=== PATIENT | male | born 1960 | race African-American/Black ===

== ENCOUNTER 2020-12-08 18:27 | Inpatient (IN) | payer SELFPAY ==
[~2020-12-08] VITALS: Ht 182.9 cm; Wt 130.7 kg
[2020-12-08] MEDS ORDERED: SODIUM CHLORIDE 0.9% 1000ML BAG (SEPSIS BOLUS) IV ONE (18:45)
[2020-12-08] MEDS ORDERED: ADENOSINE 3 MG/ML 2ML VIAL IV ONE ×2 (18:45)
[2020-12-08 19:18] LABS: HEMATOCRIT. 45.9 % (42.0-52.0); HEMOGLOBIN. 15.7 g/dL (14.0-18.0); MEAN CORPUSCULAR HEMOGLOBIN 29.5 pg (28.0-32.0); MEAN CORPUSCULAR VOLUME 86.2 fL (80.0-94.0); MEAN PLATELET VOLUME 9.9 fl (7.4-10.4); PLATELET 76 x1000/uL (130-400); RED BLOOD CELL COUNT 5.33 mill/uL (4.7-6.1); RED CELL DISTRIBUTION WIDTH 14.5 % (11.6-14.6)
[2020-12-08 19:23] LABS: INR 1.1; PROTHROMBIN TIME 11.3 sec (9.6-11.0)
[2020-12-08 19:28] LABS: CHLORIDE 96 mEq/L (98-107)
[2020-12-08] MEDS ORDERED: ONDANSETRON HCL 4MG/2ML INJ IV ONE (19:30)
[2020-12-08] MEDS ORDERED: ETOMIDATE 2MG/ML 10ML VIAL IV ONE (19:30)
[2020-12-08] MEDS ORDERED: DILTIAZEM HCL 5MG/ML 5ML VIAL IV ONE ×2 (19:45→20:15)
[2020-12-08 19:49] LABS: T4 FREE 1.15 ng/dL (0.76-1.46)
[2020-12-08 20:29] LABS: PLATELET ESTIMATE DECREASED
[2020-12-08] MEDS ORDERED: SODIUM BICARBONATE 8.4% 1 MEQ/ML 50ML SYR IV NR (22:15)
[2020-12-08] MEDS ORDERED: SODIUM BICARBONATE 150 MEQ in DEXTROSE 5% WATER 1,000 ML IV SCH (23:00)
[2020-12-09] VITALS (43 sets, daily range): BP systolic 96–159; BP diastolic 49–91
[2020-12-09] MEDS ORDERED: SODIUM BICARBONATE 8.4% MEQ/ML 50ML VIAL IV ONE (00:07)
[2020-12-09] MEDS ORDERED: HYDROCODONE/ACETAMINOPHEN 5/325MG TABLET PO PRN (03:15)
[2020-12-09 05:52] LABS: CHLORIDE 100 mEq/L (98-107)
[2020-12-09 06:04] LABS: PHOSPHORUS 5.8 mg/dL (2.5-4.9)
[2020-12-09 06:47] LABS: CREATINE KINASE > 14000 IU/L (39-308)
[2020-12-09] MEDS: ASPIRIN 81MG TABLET PO SCH (08:34)
[2020-12-09] MEDS: METOPROLOL TARTRATE 50MG TABLET PO SCH ×2 (08:34→20:14)
[2020-12-09] MEDS: SEVELAMER CARBONATE 800 MG TABLET PO SCH (08:34)
[2020-12-09] MEDS ORDERED: SODIUM CHLORIDE 0.9% 1,000 ML IV SCH (09:15)
[2020-12-09 09:38] LABS: BASOPHILS % 0.2 % (0.0-2.0); EOSINOPHILS % 3.5 % (0.0-5.0); LYMPHOCYTES % 8.4 % (20.0-50.0); MEAN CORPUSCULAR HEMOGLOBIN 29.7 pg (28.0-32.0); MEAN CORPUSCULAR VOLUME 87.1 fL (80.0-94.0); MEAN PLATELET VOLUME 10.3 fl (7.4-10.4); MONOCYTES % 7.1 % (2.0-8.0); NEUTROPHILS % 80.8 % (40.0-76.0); PLATELET 78 x1000/uL (130-400); RED CELL DISTRIBUTION WIDTH 14.4 % (11.6-14.6)
[2020-12-09 10:59] LABS: CLARITY URINE TURBID (CLEAR); COLOR URINE YELLOW (YELLOW); KETONES URINE NEGATIVE (NEGATIVE); LEUKOCYTE ESTERASE URINE 3+ (NEGATIVE); NITRITE URINE NEGATIVE (NEGATIVE); OCCULT BLOOD URINE 3+ (NEGATIVE); PH URINE 5.5 (4.5-8.0); PROTEIN URINE 2+ (NEGATIVE); SPECIFIC GRAVITY URINE 1.005 (1.005-1.030); UROBILINOGEN URINE 0.2 E.U./dL (0.2-1.0)
[2020-12-09] MEDS: CEFTRIAXONE 1,000 MG in DEXTROSE 5% WATER 50 ML IV SCH (11:07)
[2020-12-09 11:08] LABS: BG DEOXYHEMOGLOBIN 3.3 % (0.0-5.0); BG FRACTION INSPIRED OXYGEN 30; BG HCO3 ACT 20.3 mmol/L (22.0-26.0); BG METHEMOGLOBIN 0.7 % (0.0-1.5); BG OXYGEN SATURATION 96.7 % (92.0-98.5); BG PCO2 31.6 mmHg (35.0-45.0); BG PH 7.426 (7.350-7.450); BG PO2 87.5 mmHg (75.0-100.0); BG SAMPLE SITE RIGHT RADIAL; BG TOTAL HEMOGLOBIN 14.5 g/dL (12.0-18.0); BG VENT MODE NASAL CANNULA
[2020-12-09] MEDS: SODIUM BICARBONATE 150 MEQ in DEXTROSE 5% WATER 1000 ML IV SCH ×2 (11:33→20:15)
[2020-12-09] MEDS ORDERED: INFLUENZA VACCINE 05/PF 0.5 ML VIAL IM ONE (12:00)
[2020-12-09 13:57] LABS: HEPATITIS B SURFACE AB 16.2 mIU/mL
[2020-12-09 14:04] LABS: HEPATITIS B SURFACE ANTIGEN NEGATIVE
[2020-12-09 14:34] LABS: HEPATITIS A AB IGM NEGATIVE (NEGATIVE)
[2020-12-09] MEDS: IPRATROPIUM/ALBUTEROL 0.5-3(2.5)MG/3ML NEB HHN SCH (15:27)
[2020-12-09] MEDS: ACETAMINOPHEN 325MG TABLET PO PRN (20:14)
[2020-12-09] MEDS: GUAIFENESIN 600MG ER TABLET PO SCH (20:14)
[2020-12-10] VITALS (21 sets, daily range): BP systolic 101–129; BP diastolic 51–72
[2020-12-10] MEDS: IPRATROPIUM/ALBUTEROL 0.5-3(2.5)MG/3ML NEB HHN SCH ×3 (00:41→14:36)
[2020-12-10] MEDS: ACETAMINOPHEN 325MG TABLET PO PRN (04:37)
[2020-12-10 05:48] LABS: HEMATOCRIT. 42.1 % (42.0-52.0); MEAN CORPUSCULAR HEMOGLOBIN 29.3 pg (28.0-32.0); MEAN CORPUSCULAR VOLUME 88.3 fL (80.0-94.0); MEAN PLATELET VOLUME 9.4 fl (7.4-10.4); PLATELET 59 x1000/uL (130-400); RED BLOOD CELL COUNT 4.77 mill/uL (4.7-6.1); RED CELL DISTRIBUTION WIDTH 14.9 % (11.6-14.6)
[2020-12-10] MEDS: SODIUM BICARBONATE 150 MEQ in DEXTROSE 5% WATER 1000 ML IV SCH (06:03)
[2020-12-10] MEDS: ASPIRIN 81MG TABLET PO SCH (08:10)
[2020-12-10] MEDS: GUAIFENESIN 600MG ER TABLET PO SCH ×2 (08:10→21:53)
[2020-12-10] MEDS: SEVELAMER CARBONATE 800 MG TABLET PO SCH (08:10)
[2020-12-10] MEDS: METOPROLOL TARTRATE 50MG TABLET PO SCH ×2 (08:11→21:54)
[2020-12-10 08:34] LABS: CREATINE KINASE 8102 IU/L (39-308)
[2020-12-10 11:02] LABS: PLATELET ESTIMATE DECREASED
[2020-12-10] MEDS: SODIUM CHLORIDE 0.9% 1,000 ML IV SCH ×2 (11:37→19:15)
[2020-12-10] MEDS: CEFTRIAXONE 1,000 MG in DEXTROSE 5% WATER 50 ML IV SCH (11:37)
[2020-12-10 13:11] LABS: ANTI-NUCLEAR ANTIBODIES DIRECT Negative (Negative)
[2020-12-11] VITALS (7 sets, daily range): BP systolic 96–133; BP diastolic 63–82
[2020-12-11] MEDS: IPRATROPIUM/ALBUTEROL 0.5-3(2.5)MG/3ML NEB HHN SCH ×2 (00:42→09:18)
[2020-12-11] MEDS: SODIUM CHLORIDE 0.9% 1,000 ML IV SCH ×2 (05:46→15:15)
[2020-12-11 06:24] LABS: HEMOGLOBIN. 13.3 g/dL (14.0-18.0); MEAN CORPUSCULAR HEMOGLOBIN 30.1 pg (28.0-32.0); MEAN CORPUSCULAR VOLUME 88.2 fL (80.0-94.0); MEAN PLATELET VOLUME 9.6 fl (7.4-10.4); PLATELET 68 x1000/uL (130-400); RED BLOOD CELL COUNT 4.43 mill/uL (4.7-6.1); RED CELL DISTRIBUTION WIDTH 14.8 % (11.6-14.6)
[2020-12-11 07:44] LABS: CREATINE KINASE 5357 IU/L (39-308)
[2020-12-11] MEDS: METOPROLOL TARTRATE 50MG TABLET PO SCH (10:39)
[2020-12-11] MEDS: ASPIRIN 81MG TABLET PO SCH (10:39)
[2020-12-11] MEDS: GUAIFENESIN 600MG ER TABLET PO SCH ×2 (10:39→21:32)
[2020-12-11] MEDS: TAMSULOSIN HCL 0.4MG SR CAPSULE PO SCH (10:40)
[2020-12-11] MEDS ORDERED: METOPROLOL TARTRATE 25MG TABLET PO NR (11:30)
[2020-12-11] MEDS: CEFTRIAXONE 1,000 MG in DEXTROSE 5% WATER 50 ML IV SCH (13:06)
[2020-12-11] MEDS: ACETAMINOPHEN 325MG TABLET PO PRN (16:19)
[2020-12-11 16:34] LABS: PLATELET ESTIMATE DECREASED
[2020-12-11] MEDS: METOPROLOL TARTRATE 25MG TABLET PO SCH (21:32)
[2020-12-12] MEDS: IPRATROPIUM/ALBUTEROL 0.5-3(2.5)MG/3ML NEB HHN SCH ×2 (00:33→09:33)
[2020-12-12 04:00] VITALS: BP 149/93
[2020-12-12] MEDS: SODIUM CHLORIDE 0.9% 1,000 ML IV SCH ×3 (04:39→21:31)
[2020-12-12] MEDS: ACETAMINOPHEN 325MG TABLET PO PRN (05:13)
[2020-12-12 06:29] LABS: BASOPHILS % 0.1 % (0.0-2.0); EOSINOPHILS % 0.5 % (0.0-5.0); HEMATOCRIT. 42.4 % (42.0-52.0); HEMOGLOBIN. 14.3 g/dL (14.0-18.0); LYMPHOCYTES % 12.4 % (20.0-50.0); MEAN CORPUSCULAR HEMOGLOBIN 29.7 pg (28.0-32.0); MEAN CORPUSCULAR VOLUME 87.7 fL (80.0-94.0); MEAN PLATELET VOLUME 9.7 fl (7.4-10.4); MONOCYTES % 4.7 % (2.0-8.0); NEUTROPHILS % 82.3 % (40.0-76.0); PLATELET 109 x1000/uL (130-400); RED BLOOD CELL COUNT 4.84 mill/uL (4.7-6.1); RED CELL DISTRIBUTION WIDTH 14.6 % (11.6-14.6)
[2020-12-12 08:20] VITALS: BP 131/85
[2020-12-12] MEDS ORDERED: PANTOPRAZOLE SODIUM 40 MG/VIAL IV NR (09:30)
[2020-12-12 09:36] LABS: CREATINE KINASE 4062 IU/L (39-308)
[2020-12-12] MEDS: GUAIFENESIN 600MG ER TABLET PO SCH ×2 (09:38→21:30)
[2020-12-12] MEDS: TAMSULOSIN HCL 0.4MG SR CAPSULE PO SCH (09:38)
[2020-12-12] MEDS: METOPROLOL TARTRATE 25MG TABLET PO SCH ×2 (09:39→21:30)
[2020-12-12] MEDS: ASPIRIN 81MG TABLET PO SCH (09:39)
[2020-12-12 11:59] VITALS: BP 126/78
[2020-12-12] MEDS: CEFTRIAXONE 1,000 MG in DEXTROSE 5% WATER 50 ML IV SCH (12:00)
[2020-12-12 16:01] VITALS: BP 120/83
[2020-12-12 20:00] VITALS: BP 144/81
[2020-12-13] VITALS: BP 142/90
[2020-12-13 04:00] VITALS: BP 154/90
[2020-12-13 06:37] LABS: BASOPHILS % 0.2 % (0.0-2.0); EOSINOPHILS % 0.5 % (0.0-5.0); HEMATOCRIT. 41.3 % (42.0-52.0); MEAN CORPUSCULAR HEMOGLOBIN 29.3 pg (28.0-32.0); MEAN CORPUSCULAR VOLUME 86.7 fL (80.0-94.0); MEAN PLATELET VOLUME 9.3 fl (7.4-10.4); NEUTROPHILS % 82.3 % (40.0-76.0); PLATELET 125 x1000/uL (130-400); RED BLOOD CELL COUNT 4.77 mill/uL (4.7-6.1); RED CELL DISTRIBUTION WIDTH 14.5 % (11.6-14.6)
[2020-12-13 07:01] LABS: CHLORIDE 101 mEq/L (98-107)
[2020-12-13] MEDS: SODIUM CHLORIDE 0.9% 1,000 ML IV SCH (07:03)
[2020-12-13 07:34] LABS: CREATINE KINASE 2782 IU/L (39-308)
[2020-12-13 08:00] VITALS: BP 145/95
[2020-12-13] MEDS: METOPROLOL TARTRATE 25MG TABLET PO SCH ×2 (08:52→20:47)
[2020-12-13] MEDS: TAMSULOSIN HCL 0.4MG SR CAPSULE PO SCH (08:52)
[2020-12-13] MEDS: ASPIRIN 81MG TABLET PO SCH (08:52)
[2020-12-13] MEDS: GUAIFENESIN 600MG ER TABLET PO SCH ×2 (08:52→21:00)
[2020-12-13] MEDS ORDERED: FUROSEMIDE 40MG/4ML VIAL IVP NR (09:15)
[2020-12-13] MEDS ORDERED: POTASSIUM CHLORIDE 20MEQ/PACKET PO NR (09:15)
[2020-12-13] MEDS ORDERED: IPRATROPIUM/ALBUTEROL 0.5-3(2.5)MG/3ML NEB HHN PRN (10:45)
[2020-12-13] MEDS: CEFTRIAXONE 1,000 MG in DEXTROSE 5% WATER 50 ML IV SCH (11:01)
[2020-12-13 11:42] LABS: BG BASE EXCESS 2.1 mmol/L (-2.0-2.0); BG CARBOXYHEMOGLOBIN 0.5 % (0.5-1.5); BG DEOXYHEMOGLOBIN 8.3 % (0.0-5.0); BG FRACTION INSPIRED OXYGEN 21; BG HCO3 ACT 25.5 mmol/L (22.0-26.0); BG METHEMOGLOBIN 0.3 % (0.0-1.5); BG OXYGEN SATURATION 91.6 % (92.0-98.5); BG OXYHEMOGLOBIN 90.9 % (94.0-97.0); BG PCO2 35.9 mmHg (35.0-45.0); BG PH 7.469 (7.350-7.450); BG PO2 60.9 mmHg (75.0-100.0); BG SAMPLE SITE LEFT RADIAL; BG TOTAL HEMOGLOBIN 15.4 g/dL (12.0-18.0); BG VENT MODE ROOM AIR
[2020-12-13 12:00] VITALS: BP 127/77
[2020-12-13 16:00] VITALS: BP 130/84
[2020-12-13 20:00] VITALS: BP 116/59
[2020-12-13] MEDS: GUAIFENESIN-DM 200MG-20MG/10ML UDC PO SCH (23:26)
[2020-12-13] MEDS: ACETAMINOPHEN 325MG TABLET PO PRN (23:40)
[2020-12-14] VITALS (10 sets, daily range): BP systolic 105–128; BP diastolic 57–77
[2020-12-14] MEDS: GUAIFENESIN-DM 200MG-20MG/10ML UDC PO SCH ×2 (06:15→12:57)
[2020-12-14 07:28] LABS: CHLORIDE 104 mEq/L (98-107)
[2020-12-14 07:32] LABS: BASOPHILS % 0.3 % (0.0-2.0); EOSINOPHILS % 0.3 % (0.0-5.0); HEMATOCRIT. 41.7 % (42.0-52.0); HEMOGLOBIN. 14.2 g/dL (14.0-18.0); LYMPHOCYTES % 14.8 % (20.0-50.0); MEAN CORPUSCULAR HEMOGLOBIN 29.9 pg (28.0-32.0); MEAN CORPUSCULAR VOLUME 87.8 fL (80.0-94.0); MEAN PLATELET VOLUME 10.1 fl (7.4-10.4); MONOCYTES % 4.9 % (2.0-8.0); NEUTROPHILS % 79.7 % (40.0-76.0); PLATELET 144 x1000/uL (130-400); RED BLOOD CELL COUNT 4.75 mill/uL (4.7-6.1); RED CELL DISTRIBUTION WIDTH 14.7 % (11.6-14.6)
[2020-12-14 07:52] LABS: CREATINE KINASE 1201 IU/L (39-308)
[2020-12-14] MEDS ORDERED: GUAIFENESIN-DM 200MG-20MG/10ML UDC PO ONE (09:00)
[2020-12-14] MEDS: ASPIRIN 81MG TABLET PO SCH (09:44)
[2020-12-14] MEDS: TAMSULOSIN HCL 0.4MG SR CAPSULE PO SCH (09:44)
[2020-12-14] MEDS: GUAIFENESIN 600MG ER TABLET PO SCH ×2 (09:44→20:01)
[2020-12-14] MEDS: METOPROLOL TARTRATE 25MG TABLET PO SCH ×2 (09:45→20:01)
[2020-12-14] MEDS: ACETAMINOPHEN 325MG TABLET PO PRN (10:31)
[2020-12-15] VITALS (11 sets, daily range): BP systolic 117–139; BP diastolic 70–85
[2020-12-15] MEDS: GUAIFENESIN-DM 200MG-20MG/10ML UDC PO SCH ×4 (00:16→17:25)
[2020-12-15 06:25] LABS: CHLORIDE 107 mEq/L (98-107)
[2020-12-15 06:31] LABS: BASOPHILS % 0.2 % (0.0-2.0); EOSINOPHILS % 0.4 % (0.0-5.0); HEMATOCRIT. 42.5 % (42.0-52.0); HEMOGLOBIN. 14.3 g/dL (14.0-18.0); LYMPHOCYTES % 11.9 % (20.0-50.0); MEAN CORPUSCULAR HEMOGLOBIN 29.5 pg (28.0-32.0); MEAN CORPUSCULAR VOLUME 87.5 fL (80.0-94.0); MONOCYTES % 4.2 % (2.0-8.0); NEUTROPHILS % 83.3 % (40.0-76.0); PLATELET 146 x1000/uL (130-400); RED BLOOD CELL COUNT 4.86 mill/uL (4.7-6.1); RED CELL DISTRIBUTION WIDTH 14.7 % (11.6-14.6)
[2020-12-15 06:35] LABS: CREATINE KINASE 663 IU/L (39-308)
[2020-12-15] MEDS: ASPIRIN 81MG TABLET PO SCH (08:37)
[2020-12-15] MEDS: GUAIFENESIN 600MG ER TABLET PO SCH ×2 (08:38→20:50)
[2020-12-15] MEDS: TAMSULOSIN HCL 0.4MG SR CAPSULE PO SCH (08:38)
[2020-12-15] MEDS: METOPROLOL TARTRATE 25MG TABLET PO SCH ×2 (08:40→20:50)
[2020-12-15 09:54] LABS: PHOSPHORUS 3.1 mg/dL (2.5-4.9)
[2020-12-15] MEDS ORDERED: POTASSIUM CHLORIDE INJ 40 MEQ in DEXT 5% WATER 250 ML IV NR (11:00)
[2020-12-15] MEDS: METOCLOPRAMIDE HCL 10MG/2ML VIAL IV SCH ×2 (12:06→17:25)
[2020-12-15] MEDS: SODIUM CHLORIDE 0.9% 1,000 ML IV SCH (15:30)
[2020-12-16] VITALS (16 sets, daily range): BP systolic 93–149; BP diastolic 57–91
[2020-12-16] MEDS: METOCLOPRAMIDE HCL 10MG/2ML VIAL IV SCH ×5 (01:37→23:57)
[2020-12-16] MEDS: GUAIFENESIN-DM 200MG-20MG/10ML UDC PO SCH ×5 (01:37→23:57)
[2020-12-16] MEDS: SODIUM CHLORIDE 0.9% 1,000 ML IV SCH (04:32)
[2020-12-16 06:43] LABS: BASOPHILS % 0.3 % (0.0-2.0); EOSINOPHILS % 0.2 % (0.0-5.0); HEMOGLOBIN. 14.2 g/dL (14.0-18.0); LYMPHOCYTES % 13.4 % (20.0-50.0); MEAN CORPUSCULAR HEMOGLOBIN 30.3 pg (28.0-32.0); MEAN CORPUSCULAR VOLUME 87.5 fL (80.0-94.0); MEAN PLATELET VOLUME 9.7 fl (7.4-10.4); MONOCYTES % 4.2 % (2.0-8.0); NEUTROPHILS % 81.9 % (40.0-76.0); PLATELET 192 x1000/uL (130-400); RED BLOOD CELL COUNT 4.69 mill/uL (4.7-6.1); RED CELL DISTRIBUTION WIDTH 14.7 % (11.6-14.6)
[2020-12-16 07:55] LABS: CHLORIDE 109 mEq/L (98-107)
[2020-12-16 08:05] LABS: CREATINE KINASE 356 IU/L (39-308)
[2020-12-16] MEDS ORDERED: POTASSIUM CHLORIDE 20MEQ TABLET SR PO NR ×3 (09:45→22:00)
[2020-12-16] MEDS ORDERED: BISACODYL 10MG SUPP PR PRN (09:45)
[2020-12-16] MEDS: ASPIRIN 81MG TABLET PO SCH (09:50)
[2020-12-16] MEDS: GUAIFENESIN 600MG ER TABLET PO SCH ×2 (09:50→22:07)
[2020-12-16] MEDS: TAMSULOSIN HCL 0.4MG SR CAPSULE PO SCH (09:51)
[2020-12-16] MEDS: METOPROLOL TARTRATE 25MG TABLET PO SCH (09:51)
[2020-12-16] MEDS ORDERED: LACTULOSE 20G/30ML UDC PO NR (10:00)
[2020-12-16] MEDS: DEXT 5%/0.45% NACL 1000ML 1,000 ML IV SCH ×2 (11:12→21:40)
[2020-12-16] MEDS: METRONIDAZOLE 500 MG PREMIX 100 ML IV SCH ×2 (11:12→20:00)
[2020-12-16] MEDS ORDERED: METOPROLOL TARTRATE 5MG/5ML VIAL IV NR (12:15)
[2020-12-16] MEDS ORDERED: SODIUM CHLORIDE 0.9% 250 ML IV ONE ×2 (12:15→21:30)
[2020-12-16] MEDS ORDERED: CEFTRIAXONE 2 G PREMIX 50 ML IV SCH (13:00)
[2020-12-16] MEDS ORDERED: ADENOSINE 3 MG/ML 2ML VIAL IV ONE ×2 (14:15)
[2020-12-16] MEDS ORDERED: AMIODARONE HCL 150 MG in DEXT 5% WATER 100 ML IV ONE (14:30)
[2020-12-16] MEDS: CEFTRIAXONE 2 G in DEXTROSE 5% WATER 50 ML IV SCH (14:35)
[2020-12-16] MEDS: AMIODARONE HCL 900 MG in DEXT 5% WATER 482 ML IV SCH (15:28)
[2020-12-16] MEDS ORDERED: DIGOXIN 500MCG/2ML AMP IV NR (21:30)
[2020-12-16] MEDS: METOPROLOL TARTRATE 25MG TABLET PO NR ×2 (21:38→22:06)
[2020-12-17] VITALS (9 sets, daily range): BP systolic 87–112; BP diastolic 52–88
[2020-12-17] MEDS: METRONIDAZOLE 500 MG PREMIX 100 ML IV SCH ×3 (03:58→19:28)
[2020-12-17] MEDS: METOCLOPRAMIDE HCL 10MG/2ML VIAL IV SCH ×4 (05:24→23:17)
[2020-12-17] MEDS: GUAIFENESIN-DM 200MG-20MG/10ML UDC PO SCH ×4 (05:27→23:17)
[2020-12-17 06:00] LABS: CHLORIDE 105 mEq/L (98-107)
[2020-12-17 06:22] LABS: BASOPHILS % 0.6 % (0.0-2.0); EOSINOPHILS % 0.5 % (0.0-5.0); HEMATOCRIT. 42.1 % (42.0-52.0); HEMOGLOBIN. 13.7 g/dL (14.0-18.0); MEAN CORPUSCULAR HEMOGLOBIN 28.9 pg (28.0-32.0); MEAN CORPUSCULAR VOLUME 88.6 fL (80.0-94.0); MEAN PLATELET VOLUME 10.5 fl (7.4-10.4); MONOCYTES % 3.1 % (2.0-8.0); NEUTROPHILS % 82.8 % (40.0-76.0); PLATELET 164 x1000/uL (130-400); RED BLOOD CELL COUNT 4.75 mill/uL (4.7-6.1); RED CELL DISTRIBUTION WIDTH 15.1 % (11.6-14.6)
[2020-12-17] MEDS: ASPIRIN 81MG TABLET PO SCH (08:00)
[2020-12-17] MEDS: GUAIFENESIN 600MG ER TABLET PO SCH ×2 (08:00→21:46)
[2020-12-17] MEDS: METOPROLOL TARTRATE 100MG TABLET PO SCH ×2 (08:01→21:46)
[2020-12-17] MEDS: TAMSULOSIN HCL 0.4MG SR CAPSULE PO SCH (08:01)
[2020-12-17] MEDS: DIGOXIN 500MCG/2ML AMP IV SCH ×2 (08:48→17:40)
[2020-12-17] MEDS ORDERED: POTASSIUM CHLORIDE 20MEQ TABLET SR PO SCH (09:00)
[2020-12-17] MEDS ORDERED: METOPROLOL TARTRATE 5MG/5ML VIAL IV PRN (10:15)
[2020-12-17] MEDS: DEXT 5%/0.45% NACL 1000ML 1,000 ML IV SCH ×2 (10:26→23:17)
[2020-12-17] MEDS ORDERED: IPRATROPIUM BROMIDE (0.02%) 0.5MG/2.5ML NEB HHN PRN (10:30)
[2020-12-17] MEDS: AMIODARONE HCL 900 MG in DEXT 5% WATER 482 ML IV SCH (10:34)
[2020-12-17] MEDS ORDERED: POTASSIUM CHLORIDE INJ 40 MEQ in DEXT 5% WATER 250 ML IV SCH (11:00)
[2020-12-17] MEDS: CEFTRIAXONE 2 G in DEXTROSE 5% WATER 50 ML IV SCH (14:11)
[2020-12-17] MEDS ORDERED: SODIUM CHLORIDE 0.9% 250 ML IV ONE (16:15)
[2020-12-17 17:20] LABS: CHLORIDE 104 mEq/L (98-107)
[2020-12-17] MEDS ORDERED: POTASSIUM CHLORIDE INJ 40 MEQ in DEXT 5% WATER 250 ML IV NR (20:00)
[2020-12-17] MEDS: AMIODARONE HCL 200 MG TABLET PO SCH (21:45)
[2020-12-18] VITALS (15 sets, daily range): BP systolic 89–123; BP diastolic 51–79
[2020-12-18] MEDS: METRONIDAZOLE 500 MG PREMIX 100 ML IV SCH ×3 (04:00→19:56)
[2020-12-18] MEDS: GUAIFENESIN-DM 200MG-20MG/10ML UDC PO SCH ×3 (06:00→18:09)
[2020-12-18] MEDS: AMIODARONE HCL 200 MG TABLET PO SCH ×3 (06:00→20:32)
[2020-12-18] MEDS: METOCLOPRAMIDE HCL 10MG/2ML VIAL IV SCH (06:12)
[2020-12-18 07:04] LABS: BASOPHILS % 0.2 % (0.0-2.0); EOSINOPHILS % 0.6 % (0.0-5.0); HEMATOCRIT. 44.2 % (42.0-52.0); HEMOGLOBIN. 14.5 g/dL (14.0-18.0); LYMPHOCYTES % 11.4 % (20.0-50.0); MEAN CORPUSCULAR HEMOGLOBIN 29.3 pg (28.0-32.0); MEAN CORPUSCULAR VOLUME 89.3 fL (80.0-94.0); MEAN PLATELET VOLUME 9.8 fl (7.4-10.4); NEUTROPHILS % 83.8 % (40.0-76.0); PLATELET 135 x1000/uL (130-400); RED BLOOD CELL COUNT 4.95 mill/uL (4.7-6.1); RED CELL DISTRIBUTION WIDTH 14.8 % (11.6-14.6)
[2020-12-18 07:14] LABS: CHLORIDE 106 mEq/L (98-107)
[2020-12-18 07:19] LABS: PHOSPHORUS 2.9 mg/dL (2.5-4.9)
[2020-12-18 07:45] LABS: DIGOXIN 0.7 ng/mL (0.9-2.0)
[2020-12-18] MEDS: METOPROLOL TARTRATE 100MG TABLET PO SCH ×2 (09:00→20:33)
[2020-12-18] MEDS: ASPIRIN 81MG TABLET PO SCH (10:38)
[2020-12-18] MEDS: TAMSULOSIN HCL 0.4MG SR CAPSULE PO SCH (10:38)
[2020-12-18] MEDS: DEXT 5%/0.45% NACL 1000ML 1,000 ML IV SCH ×2 (10:39→18:11)
[2020-12-18] MEDS: GUAIFENESIN 600MG ER TABLET PO SCH (13:08)
[2020-12-18] MEDS ORDERED: AMIODARONE HCL 50MG/ML 3ML VIAL IV ONE (13:45)
[2020-12-18] MEDS ORDERED: AMIODARONE HCL 150 MG in DEXT 5% WATER 100 ML IV SCH (15:00)
[2020-12-18] MEDS: CEFTRIAXONE 2 G in DEXTROSE 5% WATER 50 ML IV SCH (15:10)
[2020-12-18] MEDS: DIGOXIN 500MCG/2ML AMP IV SCH (18:09)
[2020-12-19] VITALS (12 sets, daily range): BP systolic 101–132; BP diastolic 55–82
[2020-12-19] MEDS: GUAIFENESIN-DM 200MG-20MG/10ML UDC PO SCH ×4 (01:00→18:26)
[2020-12-19] MEDS: METRONIDAZOLE 500 MG PREMIX 100 ML IV SCH ×3 (04:32→20:07)
[2020-12-19] MEDS: DEXT 5%/0.45% NACL 1000ML 1,000 ML IV SCH ×2 (04:32→13:40)
[2020-12-19] MEDS: AMIODARONE HCL 200 MG TABLET PO SCH ×3 (06:00→21:52)
[2020-12-19] MEDS: METOPROLOL TARTRATE 100MG TABLET PO SCH (08:12)
[2020-12-19] MEDS: ASPIRIN 81MG TABLET PO SCH (08:12)
[2020-12-19] MEDS: TAMSULOSIN HCL 0.4MG SR CAPSULE PO SCH (08:13)
[2020-12-19 11:15] LABS: BASOPHILS % 0.3 % (0.0-2.0); EOSINOPHILS % 0.8 % (0.0-5.0); HEMATOCRIT. 39.2 % (42.0-52.0); HEMOGLOBIN. 13.1 g/dL (14.0-18.0); LYMPHOCYTES % 15.3 % (20.0-50.0); MEAN CORPUSCULAR HEMOGLOBIN 29.4 pg (28.0-32.0); MEAN CORPUSCULAR VOLUME 87.8 fL (80.0-94.0); MEAN PLATELET VOLUME 9.8 fl (7.4-10.4); MONOCYTES % 6.1 % (2.0-8.0); NEUTROPHILS % 77.5 % (40.0-76.0); PLATELET 136 x1000/uL (130-400); RED BLOOD CELL COUNT 4.47 mill/uL (4.7-6.1); RED CELL DISTRIBUTION WIDTH 14.8 % (11.6-14.6)
[2020-12-19 11:22] LABS: CHLORIDE 105 mEq/L (98-107)
[2020-12-19] MEDS: CEFTRIAXONE 2 G in DEXTROSE 5% WATER 50 ML IV SCH (13:38)
[2020-12-19] MEDS: DIGOXIN 500MCG/2ML AMP IV SCH (18:26)
[2020-12-19] MEDS: METOPROLOL TARTRATE 50MG TABLET PO SCH (21:52)
[2020-12-20] VITALS (12 sets, daily range): BP systolic 104–117; BP diastolic 44–75
[2020-12-20] MEDS: DEXT 5%/0.45% NACL 1000ML 1,000 ML IV SCH ×3 (00:49→20:57)
[2020-12-20] MEDS: GUAIFENESIN-DM 200MG-20MG/10ML UDC PO SCH ×4 (00:59→17:45)
[2020-12-20] MEDS: METRONIDAZOLE 500 MG PREMIX 100 ML IV SCH ×3 (04:00→20:57)
[2020-12-20] MEDS: AMIODARONE HCL 200 MG TABLET PO SCH ×3 (06:00→22:24)
[2020-12-20 06:46] LABS: BASOPHILS % 0.6 % (0.0-2.0); EOSINOPHILS % 1.1 % (0.0-5.0); HEMATOCRIT. 39.2 % (42.0-52.0); HEMOGLOBIN. 13.2 g/dL (14.0-18.0); MEAN CORPUSCULAR HEMOGLOBIN 29.9 pg (28.0-32.0); MEAN CORPUSCULAR VOLUME 88.8 fL (80.0-94.0); MEAN PLATELET VOLUME 9.7 fl (7.4-10.4); MONOCYTES % 7.6 % (2.0-8.0); NEUTROPHILS % 73.7 % (40.0-76.0); PLATELET 125 x1000/uL (130-400); RED BLOOD CELL COUNT 4.41 mill/uL (4.7-6.1); RED CELL DISTRIBUTION WIDTH 14.9 % (11.6-14.6)
[2020-12-20 06:52] LABS: CHLORIDE 104 mEq/L (98-107)
[2020-12-20] MEDS: METOPROLOL TARTRATE 50MG TABLET PO SCH ×2 (10:05→20:58)
[2020-12-20] MEDS: ASPIRIN 81MG TABLET PO SCH (10:05)
[2020-12-20] MEDS: TAMSULOSIN HCL 0.4MG SR CAPSULE PO SCH (10:05)
[2020-12-20] MEDS ORDERED: DIATR MEGLU/DIATRIZOATE SOLN 30ML PO SCH (10:30)
[2020-12-20] MEDS ORDERED: IOHEXOL-300 100 ML BOTTLE ONE (14:37)
[2020-12-20] MEDS: CEFTRIAXONE 2 G in DEXTROSE 5% WATER 50 ML IV SCH (15:24)
[2020-12-20] MEDS: DIGOXIN 500MCG/2ML AMP IV SCH (17:46)
[2020-12-21] VITALS (15 sets, daily range): BP systolic 101–123; BP diastolic 56–73
[2020-12-21] MEDS: GUAIFENESIN-DM 200MG-20MG/10ML UDC PO SCH ×4 (01:01→17:32)
[2020-12-21] MEDS: METRONIDAZOLE 500 MG PREMIX 100 ML IV SCH (05:11)
[2020-12-21] MEDS: AMIODARONE HCL 200 MG TABLET PO SCH ×3 (05:59→22:11)
[2020-12-21] MEDS: DEXT 5%/0.45% NACL 1000ML 1,000 ML IV SCH ×2 (06:38→18:00)
[2020-12-21 07:54] LABS: HEMOGLOBIN. 12.7 g/dL (14.0-18.0); MEAN CORPUSCULAR HEMOGLOBIN 29.4 pg (28.0-32.0); MEAN CORPUSCULAR VOLUME 87.6 fL (80.0-94.0); MEAN PLATELET VOLUME 8.9 fl (7.4-10.4); PLATELET 129 x1000/uL (130-400); RED BLOOD CELL COUNT 4.33 mill/uL (4.7-6.1); RED CELL DISTRIBUTION WIDTH 14.6 % (11.6-14.6)
[2020-12-21 08:29] LABS: CHLORIDE 105 mEq/L (98-107)
[2020-12-21] MEDS: METOPROLOL TARTRATE 50MG TABLET PO SCH ×2 (09:44→22:04)
[2020-12-21] MEDS: ASPIRIN 81MG TABLET PO SCH (09:45)
[2020-12-21] MEDS: TAMSULOSIN HCL 0.4MG SR CAPSULE PO SCH (09:45)
[2020-12-21] MEDS ORDERED: POTASSIUM CHLORIDE INJ 40 MEQ in DEXT 5% WATER 250 ML IV NR (11:00)
[2020-12-21 12:58] LABS: PLATELET ESTIMATE NORMAL
[2020-12-21] MEDS: CEFTRIAXONE 2 G in DEXTROSE 5% WATER 50 ML IV SCH (15:43)
[2020-12-21] MEDS: DIGOXIN 500MCG/2ML AMP IV SCH (17:31)
[2020-12-22] VITALS (11 sets, daily range): BP systolic 110–133; BP diastolic 61–83
[2020-12-22] MEDS: DEXT 5%/0.45% NACL 1000ML 1,000 ML IV SCH (03:05)
[2020-12-22 05:53] LABS: CHLORIDE 101 mEq/L (98-107)
[2020-12-22] MEDS: AMIODARONE HCL 200 MG TABLET PO SCH ×4 (06:19→22:31)
[2020-12-22] MEDS: GUAIFENESIN-DM 200MG-20MG/10ML UDC PO SCH ×4 (06:23→18:21)
[2020-12-22 06:27] LABS: HEMATOCRIT. 40.8 % (42.0-52.0); HEMOGLOBIN. 13.6 g/dL (14.0-18.0); MEAN CORPUSCULAR HEMOGLOBIN 29.5 pg (28.0-32.0); MEAN CORPUSCULAR VOLUME 88.3 fL (80.0-94.0); MEAN PLATELET VOLUME 9.1 fl (7.4-10.4); PLATELET 118 x1000/uL (130-400); RED BLOOD CELL COUNT 4.62 mill/uL (4.7-6.1); RED CELL DISTRIBUTION WIDTH 14.6 % (11.6-14.6)
[2020-12-22] MEDS: METOPROLOL TARTRATE 50MG TABLET PO SCH ×3 (09:19→22:40)
[2020-12-22] MEDS: ASPIRIN 81MG TABLET PO SCH (09:19)
[2020-12-22] MEDS: TAMSULOSIN HCL 0.4MG SR CAPSULE PO SCH (09:21)
[2020-12-22 11:10] LABS: HEMATOCRIT 40.6 % (42.0-52.0); HEMOGLOBIN 13.1 g/dL (14.0-18.0); MEAN CORPUSCULAR HEMOGLOBIN 28.3 pg (28.0-32.0); MEAN CORPUSCULAR VOLUME 87.8 fL (80.0-94.0); PLATELET 133 x1000/uL (130-400); RED BLOOD CELL COUNT 4.63 mill/uL (4.7-6.1); RED CELL DISTRIBUTION WIDTH 14.8 % (11.6-14.6)
[2020-12-22 11:21] LABS: CHLORIDE 102 mEq/L (98-107); INR 1.4; PARTIAL THROMBOPLASTIN TIME 35.1 sec (23.4-31.0); PROTHROMBIN TIME 14.2 sec (9.6-11.0)
[2020-12-22 11:29] LABS: PHOSPHORUS 2.7 mg/dL (2.5-4.9)
[2020-12-22] MEDS: SODIUM CHL 0.9% + KCL 20MEQ/L 1,000 ML IV SCH ×2 (11:30→19:30)
[2020-12-22 12:57] LABS: PLATELET ESTIMATE DECREASED
[2020-12-22] MEDS: CEFTRIAXONE 2 G in DEXTROSE 5% WATER 50 ML IV SCH (14:25)
[2020-12-22] MEDS: DIGOXIN 500MCG/2ML AMP IV SCH (18:21)
[2020-12-22] MEDS ORDERED: TOTAL PARENTERAL NUTRITION 1,600 ML IV SCH (21:00)
[2020-12-22] MEDS ORDERED: SODIUM CHL 0.9% + KCL 20MEQ/L 1,000 ML IV SCH (21:00)
[2020-12-22] MEDS: BLOOD SUGAR DIAGNOSTIC STRIP TEST SCH (23:28)
[2020-12-23] VITALS (13 sets, daily range): BP systolic 100–148; BP diastolic 58–87
[2020-12-23] MEDS: GUAIFENESIN-DM 200MG-20MG/10ML UDC PO SCH ×4 (00:56→17:27)
[2020-12-23 06:24] LABS: BASOPHILS % 0.4 % (0.0-2.0); EOSINOPHILS % 1.3 % (0.0-5.0); HEMATOCRIT. 38.9 % (42.0-52.0); HEMOGLOBIN. 12.8 g/dL (14.0-18.0); LYMPHOCYTES % 32.9 % (20.0-50.0); MEAN CORPUSCULAR HEMOGLOBIN 29.2 pg (28.0-32.0); MEAN CORPUSCULAR VOLUME 88.6 fL (80.0-94.0); MEAN PLATELET VOLUME 9.2 fl (7.4-10.4); MONOCYTES % 11.7 % (2.0-8.0); NEUTROPHILS % 53.7 % (40.0-76.0); PLATELET 105 x1000/uL (130-400); RED BLOOD CELL COUNT 4.38 mill/uL (4.7-6.1); RED CELL DISTRIBUTION WIDTH 14.8 % (11.6-14.6)
[2020-12-23] MEDS: AMIODARONE HCL 200 MG TABLET PO SCH ×3 (06:45→22:22)
[2020-12-23 06:56] LABS: CHLORIDE 103 mEq/L (98-107)
[2020-12-23] MEDS: BLOOD SUGAR DIAGNOSTIC STRIP TEST SCH ×3 (08:18→18:00)
[2020-12-23] MEDS ORDERED: DIATR MEGLU/DIATRIZOATE SOLN 30ML PO SCH (09:00)
[2020-12-23] MEDS: METOPROLOL TARTRATE 50MG TABLET PO SCH ×2 (09:00→20:08)
[2020-12-23] MEDS: ASPIRIN 81MG TABLET PO SCH (09:07)
[2020-12-23] MEDS: TAMSULOSIN HCL 0.4MG SR CAPSULE PO SCH (09:07)
[2020-12-23] MEDS ORDERED: REGADENOSON 0.4 MG/5 ML IV SCH (12:00)
[2020-12-23] MEDS ORDERED: REGADENOSON 0.4 MG/5 ML IV ONE (14:29)
[2020-12-23] MEDS: CEFTRIAXONE 2 G in DEXTROSE 5% WATER 50 ML IV SCH (16:55)
[2020-12-23] MEDS: DIGOXIN 500MCG/2ML AMP IV SCH (17:26)
[2020-12-23] MEDS: TOTAL PARENTERAL NUTRITION 1,800 ML IV SCH (21:00)
[2020-12-23] MEDS ORDERED: FAT EMULSIONS 500 ML IV SCH (21:00)
[2020-12-24] VITALS (12 sets, daily range): BP systolic 97–137; BP diastolic 57–87
[2020-12-24] MEDS: GUAIFENESIN-DM 200MG-20MG/10ML UDC PO SCH ×5 (00:06→23:55)
[2020-12-24] MEDS: BLOOD SUGAR DIAGNOSTIC STRIP TEST SCH ×4 (00:57→23:22)
[2020-12-24] MEDS: ONDANSETRON HCL 4MG/2ML INJ IV PRN (01:32)
[2020-12-24] MEDS: AMIODARONE HCL 200 MG TABLET PO SCH (05:13)
[2020-12-24] MEDS: CEFTRIAXONE 1,000 MG in DEXTROSE 5% WATER 50 ML IV SCH (08:28)
[2020-12-24] MEDS: ASPIRIN 81MG TABLET PO SCH (08:28)
[2020-12-24] MEDS: TAMSULOSIN HCL 0.4MG SR CAPSULE PO SCH (08:29)
[2020-12-24] MEDS: METOPROLOL TARTRATE 50MG TABLET PO SCH ×2 (09:00→21:00)
[2020-12-24] MEDS ORDERED: CEFTRIAXONE 2 G PREMIX 50 ML IV SCH (09:00)
[2020-12-24] MEDS: DIGOXIN 500MCG/2ML AMP IV SCH (17:46)
[2020-12-24] MEDS: TOTAL PARENTERAL NUTRITION 1,800 ML IV SCH (21:07)
[2020-12-25] VITALS (13 sets, daily range): BP systolic 99–126; BP diastolic 59–77
[2020-12-25] MEDS: BLOOD SUGAR DIAGNOSTIC STRIP TEST SCH ×4 (00:02→17:33)
[2020-12-25] MEDS: GUAIFENESIN-DM 200MG-20MG/10ML UDC PO SCH ×3 (05:16→17:33)
[2020-12-25] MEDS: ASPIRIN 81MG TABLET PO SCH (09:40)
[2020-12-25] MEDS: METOPROLOL TARTRATE 50MG TABLET PO SCH ×2 (09:40→20:41)
[2020-12-25] MEDS: TAMSULOSIN HCL 0.4MG SR CAPSULE PO SCH (09:40)
[2020-12-25] MEDS: CEFTRIAXONE 1,000 MG in DEXTROSE 5% WATER 50 ML IV SCH (09:41)
[2020-12-25] MEDS: AMIODARONE HCL 200 MG TABLET PO SCH (09:41)
[2020-12-25] MEDS: DIGOXIN 500MCG/2ML AMP IV SCH (17:41)
[2020-12-25 18:20] LABS: HEMATOCRIT. 36.8 % (42.0-52.0); HEMOGLOBIN. 12.3 g/dL (14.0-18.0); MEAN CORPUSCULAR HEMOGLOBIN 29.3 pg (28.0-32.0); MEAN CORPUSCULAR VOLUME 87.3 fL (80.0-94.0); MEAN PLATELET VOLUME 9.1 fl (7.4-10.4); PLATELET 105 x1000/uL (130-400); RED BLOOD CELL COUNT 4.22 mill/uL (4.7-6.1); RED CELL DISTRIBUTION WIDTH 14.9 % (11.6-14.6)
[2020-12-25 18:32] LABS: CHLORIDE 100 mEq/L (98-107)
[2020-12-25 19:03] LABS: PLATELET ESTIMATE DECREASED
[2020-12-25] MEDS: TOTAL PARENTERAL NUTRITION 1,800 ML IV SCH (20:47)
[2020-12-25] MEDS: FAT EMULSIONS 500 ML IV SCH (22:03)
[2020-12-26] VITALS (12 sets, daily range): BP systolic 96–126; BP diastolic 56–72
[2020-12-26] MEDS: GUAIFENESIN-DM 200MG-20MG/10ML UDC PO SCH ×4 (00:04→17:37)
[2020-12-26] MEDS: BLOOD SUGAR DIAGNOSTIC STRIP TEST SCH ×2 (00:04→09:03)
[2020-12-26 06:11] LABS: HEMATOCRIT. 39.7 % (42.0-52.0); HEMOGLOBIN. 13.3 g/dL (14.0-18.0); MEAN CORPUSCULAR HEMOGLOBIN 29.6 pg (28.0-32.0); MEAN PLATELET VOLUME 9.2 fl (7.4-10.4); PLATELET 101 x1000/uL (130-400); RED BLOOD CELL COUNT 4.52 mill/uL (4.7-6.1); RED CELL DISTRIBUTION WIDTH 14.8 % (11.6-14.6)
[2020-12-26 06:14] LABS: CHLORIDE 101 mEq/L (98-107)
[2020-12-26] MEDS: ASPIRIN 81MG TABLET PO SCH (08:46)
[2020-12-26] MEDS: METOPROLOL TARTRATE 50MG TABLET PO SCH ×2 (08:47→20:17)
[2020-12-26] MEDS: TAMSULOSIN HCL 0.4MG SR CAPSULE PO SCH (08:47)
[2020-12-26] MEDS: CEFTRIAXONE 1,000 MG in DEXTROSE 5% WATER 50 ML IV SCH (08:47)
[2020-12-26] MEDS: AMIODARONE HCL 200 MG TABLET PO SCH (08:47)
[2020-12-26] MEDS ORDERED: DIATR MEGLU/DIATRIZOATE SOLN 120ML ONE (09:43)
[2020-12-26 15:17] LABS: PLATELET ESTIMATE DECREASED
[2020-12-26] MEDS: DIGOXIN 500MCG/2ML AMP IV SCH (17:37)
[2020-12-26] MEDS: TOTAL PARENTERAL NUTRITION 1,800 ML IV SCH (20:19)
[2020-12-27] VITALS (12 sets, daily range): BP systolic 82–119; BP diastolic 51–74
[2020-12-27] MEDS: GUAIFENESIN-DM 200MG-20MG/10ML UDC PO SCH ×4 (00:45→18:33)
[2020-12-27] MEDS: CEFTRIAXONE 1,000 MG in DEXTROSE 5% WATER 50 ML IV SCH (08:17)
[2020-12-27] MEDS: ASPIRIN 81MG TABLET PO SCH (08:18)
[2020-12-27] MEDS: AMIODARONE HCL 200 MG TABLET PO SCH (08:19)
[2020-12-27] MEDS: TAMSULOSIN HCL 0.4MG SR CAPSULE PO SCH (08:19)
[2020-12-27] MEDS: METOPROLOL TARTRATE 50MG TABLET PO SCH ×2 (08:20→21:19)
[2020-12-27] MEDS: BLOOD SUGAR DIAGNOSTIC STRIP TEST SCH (09:53)
[2020-12-27] MEDS: FAT EMULSIONS 500 ML IV SCH (09:53)
[2020-12-27] MEDS: DIGOXIN 500MCG/2ML AMP IV SCH (18:33)
[2020-12-27] MEDS: TOTAL PARENTERAL NUTRITION 1,800 ML IV SCH (21:08)
[2020-12-28] VITALS (10 sets, daily range): BP systolic 97–114; BP diastolic 56–76
[2020-12-28] MEDS: GUAIFENESIN-DM 200MG-20MG/10ML UDC PO SCH ×4 (05:31→17:44)
[2020-12-28] MEDS: METOPROLOL TARTRATE 50MG TABLET PO SCH ×2 (09:00→21:00)
[2020-12-28] MEDS: ASPIRIN 81MG TABLET PO SCH (09:06)
[2020-12-28] MEDS: TAMSULOSIN HCL 0.4MG SR CAPSULE PO SCH (09:07)
[2020-12-28] MEDS: CEFTRIAXONE 1,000 MG in DEXTROSE 5% WATER 50 ML IV SCH (09:07)
[2020-12-28] MEDS: BLOOD SUGAR DIAGNOSTIC STRIP TEST SCH (09:30)
[2020-12-28] MEDS: AMIODARONE HCL 200 MG TABLET PO SCH (09:46)
[2020-12-28] MEDS: DIGOXIN 500MCG/2ML AMP IV SCH (17:44)
[2020-12-28] MEDS: TOTAL PARENTERAL NUTRITION 1,800 ML IV SCH (21:39)
[2020-12-29] VITALS (13 sets, daily range): BP systolic 91–117; BP diastolic 53–91
[2020-12-29] MEDS: GUAIFENESIN-DM 200MG-20MG/10ML UDC PO SCH ×5 (00:24→23:24)
[2020-12-29] MEDS: METOPROLOL TARTRATE 50MG TABLET PO SCH ×2 (09:00→20:45)
[2020-12-29] MEDS: BLOOD SUGAR DIAGNOSTIC STRIP TEST SCH (09:00)
[2020-12-29] MEDS: ASPIRIN 81MG TABLET PO SCH (10:10)
[2020-12-29] MEDS: TAMSULOSIN HCL 0.4MG SR CAPSULE PO SCH (10:12)
[2020-12-29] MEDS: AMIODARONE HCL 200 MG TABLET PO SCH (10:13)
[2020-12-29] MEDS ORDERED: BISACODYL 5MG TABLET PO PRN (10:15)
[2020-12-29] MEDS: CEFTRIAXONE 1,000 MG in DEXTROSE 5% WATER 50 ML IV SCH (10:18)
[2020-12-29] MEDS: METOCLOPRAMIDE HCL 10MG/2ML VIAL IV SCH ×3 (12:36→23:24)
[2020-12-29] MEDS: DIGOXIN 500MCG/2ML AMP IV SCH (18:16)
[2020-12-29] MEDS: TOTAL PARENTERAL NUTRITION 1,800 ML IV SCH (20:48)
[2020-12-30] VITALS (16 sets, daily range): BP systolic 90–150; BP diastolic 18–99
[2020-12-30] MEDS: GUAIFENESIN-DM 200MG-20MG/10ML UDC PO SCH ×3 (05:40→17:57)
[2020-12-30] MEDS: METOCLOPRAMIDE HCL 10MG/2ML VIAL IV SCH ×3 (05:40→17:57)
[2020-12-30 07:24] LABS: HEMATOCRIT. 36.7 % (42.0-52.0); HEMOGLOBIN. 12.2 g/dL (14.0-18.0); MEAN CORPUSCULAR HEMOGLOBIN 29.3 pg (28.0-32.0); MEAN CORPUSCULAR VOLUME 88.1 fL (80.0-94.0); MEAN PLATELET VOLUME 9.2 fl (7.4-10.4); PLATELET 133 x1000/uL (130-400); RED BLOOD CELL COUNT 4.17 mill/uL (4.7-6.1); RED CELL DISTRIBUTION WIDTH 14.7 % (11.6-14.6)
[2020-12-30 07:46] LABS: CHLORIDE 101 mEq/L (98-107)
[2020-12-30] MEDS: METOPROLOL TARTRATE 50MG TABLET PO SCH ×2 (09:00→21:09)
[2020-12-30] MEDS: BLOOD SUGAR DIAGNOSTIC STRIP TEST SCH (09:00)
[2020-12-30] MEDS: ASPIRIN 81MG TABLET PO SCH (10:19)
[2020-12-30] MEDS: TAMSULOSIN HCL 0.4MG SR CAPSULE PO SCH (10:27)
[2020-12-30] MEDS: FAT EMULSIONS 500 ML IV SCH (13:06)
[2020-12-30] MEDS: AMIODARONE HCL 200 MG TABLET PO SCH (13:07)
[2020-12-30 16:41] LABS: PLATELET ESTIMATE NORMAL
[2020-12-30] MEDS: TOTAL PARENTERAL NUTRITION 1,800 ML IV SCH (21:04)
[2020-12-31] VITALS (12 sets, daily range): BP systolic 98–131; BP diastolic 47–81
[2020-12-31] MEDS: METOCLOPRAMIDE HCL 10MG/2ML VIAL IV SCH ×4 (00:36→18:38)
[2020-12-31] MEDS: GUAIFENESIN-DM 200MG-20MG/10ML UDC PO SCH ×4 (00:36→18:38)
[2020-12-31] MEDS: BLOOD SUGAR DIAGNOSTIC STRIP TEST SCH (09:00)
[2020-12-31] MEDS: TAMSULOSIN HCL 0.4MG SR CAPSULE PO SCH (09:00)
[2020-12-31] MEDS: METOPROLOL TARTRATE 50MG TABLET PO SCH ×2 (09:00→22:28)
[2020-12-31] MEDS: ASPIRIN 81MG TABLET PO SCH (10:11)
[2020-12-31] MEDS: AMIODARONE HCL 200 MG TABLET PO SCH (10:14)
[2020-12-31] MEDS: TOTAL PARENTERAL NUTRITION 1,800 ML IV SCH (22:39)
[2021-01-01] VITALS (15 sets, daily range): BP systolic 82–124; BP diastolic 33–75
[2021-01-01] MEDS: METOCLOPRAMIDE HCL 10MG/2ML VIAL IV SCH ×4 (00:11→17:31)
[2021-01-01] MEDS: GUAIFENESIN-DM 200MG-20MG/10ML UDC PO SCH ×5 (00:11→23:54)
[2021-01-01] MEDS: ONDANSETRON HCL 4MG/2ML INJ IV PRN (00:17)
[2021-01-01] MEDS: ASPIRIN 81MG TABLET PO SCH (08:15)
[2021-01-01] MEDS: METOPROLOL TARTRATE 50MG TABLET PO SCH ×2 (08:17→20:35)
[2021-01-01] MEDS: TAMSULOSIN HCL 0.4MG SR CAPSULE PO SCH (08:18)
[2021-01-01] MEDS: AMIODARONE HCL 200 MG TABLET PO SCH (08:19)
[2021-01-01] MEDS: BLOOD SUGAR DIAGNOSTIC STRIP TEST SCH (09:00)
[2021-01-01] MEDS ORDERED: HYDROCODONE/ACETAMINOPHEN 10/325MG TABLET PO PRN (09:30)
[2021-01-01] MEDS ORDERED: LOPERAMIDE HCL 2MG CAPSULE PO PRN (09:35)
[2021-01-01] MEDS: TOTAL PARENTERAL NUTRITION 1,800 ML IV SCH (20:24)
[2021-01-01] MEDS ORDERED: FAT EMULSIONS 250 ML IV SCH (21:00)
[2021-01-01] MEDS ORDERED: FAT EMULSIONS 500 ML IV SCH (21:00)
[2021-01-02] VITALS (19 sets, daily range): BP systolic 71–120; BP diastolic 38–72
[2021-01-02] MEDS ORDERED: FAT EMULSIONS 250 ML IV SCH (01:00)
[2021-01-02] MEDS: GUAIFENESIN-DM 200MG-20MG/10ML UDC PO SCH ×2 (05:14→14:03)
[2021-01-02] MEDS: METOCLOPRAMIDE HCL 10MG/2ML VIAL IV SCH ×4 (05:44→19:24)
[2021-01-02 07:14] LABS: HEMATOCRIT 36.7 % (42.0-52.0); HEMOGLOBIN 12.1 g/dL (14.0-18.0); MEAN CORPUSCULAR HEMOGLOBIN 28.9 pg (28.0-32.0); MEAN CORPUSCULAR VOLUME 87.5 fL (80.0-94.0); PLATELET 192 x1000/uL (130-400)
[2021-01-02 07:34] LABS: CHLORIDE 102 mEq/L (98-107)
[2021-01-02] MEDS: BLOOD SUGAR DIAGNOSTIC STRIP TEST SCH (09:00)
[2021-01-02] MEDS: ASPIRIN 81MG TABLET PO SCH (10:00)
[2021-01-02] MEDS: METOPROLOL TARTRATE 50MG TABLET PO SCH ×2 (10:01→21:00)
[2021-01-02] MEDS: AMIODARONE HCL 200 MG TABLET PO SCH (10:01)
[2021-01-02] MEDS: TAMSULOSIN HCL 0.4MG SR CAPSULE PO SCH (10:01)
[2021-01-02] MEDS ORDERED: GUAIFENESIN-DM 200MG-20MG/10ML UDC PO PRN (16:15)
[2021-01-02] MEDS: TOTAL PARENTERAL NUTRITION 1,800 ML IV SCH (21:00)
[2021-01-03] VITALS (11 sets, daily range): BP systolic 88–130; BP diastolic 49–88
[2021-01-03] MEDS: METOCLOPRAMIDE HCL 10MG/2ML VIAL IV SCH ×3 (00:23→13:05)
[2021-01-03] MEDS: ASPIRIN 81MG TABLET PO SCH (08:06)
[2021-01-03] MEDS: BLOOD SUGAR DIAGNOSTIC STRIP TEST SCH (08:07)
[2021-01-03] MEDS: AMIODARONE HCL 200 MG TABLET PO SCH (08:07)
[2021-01-03] MEDS: METOPROLOL TARTRATE 50MG TABLET PO SCH (08:07)
[2021-01-03] MEDS: TAMSULOSIN HCL 0.4MG SR CAPSULE PO SCH (08:07)
[2021-01-03] MEDS ORDERED: TAMS-11 PO (11:35)
[2021-01-03] MEDS ORDERED: METO-539 PO (11:35)
[2021-01-03] MEDS ORDERED: AMI2 PO (11:35)
[2021-01-03] MEDS ORDERED: ASPI-1406 MT (12:04)
== END 2021-01-03 16:40 | disposition home or self-care (01) | DRG 720 ==
LOC: ER 18:27 → CVICU 21:54 → ENRESERV 23:17 → 8WST 12-10 10:16 → 5EST 12-14 11:29
PROVIDERS: ADMIT Internal Medicine; ATTEND Internal Medicine
PROC: 5A2204Z Restoration of Cardiac Rhythm, Single (ICD-10-PCS; principal; 2020-12-08)
PROC: 0D9670Z Drainage of Stomach with Drainage Device, Via Natural or Artificial Opening (ICD-10-PCS; 2020-12-08)
PROC: 02HV33Z Insertion of Infusion Device into Superior Vena Cava, Percutaneous Approach (ICD-10-PCS; 2020-12-22)
PROC: B548ZZA Ultrasonography of Superior Vena Cava, Guidance (ICD-10-PCS; 2020-12-22)
DX: A02.1 Salmonella sepsis (principal); I21.4 Non-ST elevation (NSTEMI) myocardial infarction; E43 Unspecified severe protein-calorie malnutrition; G93.40 Encephalopathy, unspecified; K56.609 Unspecified intestinal obstruction, unspecified as to partial versus complete obstruction; N17.9 Acute kidney failure, unspecified; E72.20 Disorder of urea cycle metabolism, unspecified; D69.6 Thrombocytopenia, unspecified; E87.1 Hypo-osmolality and hyponatremia; E87.8 Other disorders of electrolyte and fluid balance, not elsewhere classified; I11.0 Hypertensive heart disease with heart failure; I50.20 Unspecified systolic (congestive) heart failure; I42.9 Cardiomyopathy, unspecified; E86.0 Dehydration; A41.50 Gram-negative sepsis, unspecified; E86.1 Hypovolemia; E87.6 Hypokalemia; I47.1 Supraventricular tachycardia; I48.91 Unspecified atrial fibrillation; I48.92 Unspecified atrial flutter; J45.909 Unspecified asthma, uncomplicated; K56.7 Ileus, unspecified; K57.30 Diverticulosis of large intestine without perforation or abscess without bleeding; K76.9 Liver disease, unspecified; M62.82 Rhabdomyolysis; N13.8 Other obstructive and reflux uropathy; N30.90 Cystitis, unspecified without hematuria; N40.1 Benign prostatic hyperplasia with lower urinary tract symptoms; Z68.39 Body mass index [BMI] 39.0-39.9, adult; Z20.822 Contact with and (suspected) exposure to COVID-19
CPT/HCPCS: 36415; 36600; 71045; 74018; 74176; 74177; 74250; 76700; 76937; 78452; 80048; 80053; 80076; 80162; 81003; 82140; 82248; 82375; 82465; 82550; 82805; 82962; 83036; 83605; 83735; 83880; 84100; 84132; 84134; 84439; 84443; 84478; 84484; 85025; 85027; 86038; 86160; 86705; 86706; 86709; 86803; 86850; 86900; 87015; 87045; 87186; 87340; 87426; 87427; 87449; 89055; 93005; 93017; 93306; 93923; 93970; 94640; 97110; 97116; 97162; 97164; 97166; 97530; 97535; 99291; A9500; C1725; C1893; C9113; J0153; J0282; J0696; J1160; J1940; J2405; J2765; J2785; J3480; J3490; J7030; J7040; J7060; J7070; Q9963; Q9967; A4315

== ENCOUNTER 2021-04-16 08:46 | Emergency (ER) | payer MEDICAID ==
[~2021-04-16] VITALS: Ht 172.7 cm; Wt 100.0 kg
[~2021-04-16 08:46] MED LIST: AMI2 PO; ASPI-1406 MT; METO-539 PO; TAMS-11 PO
[2021-04-16 10:44] LABS: CLARITY URINE CLOUDY (CLEAR); COLOR URINE YELLOW (YELLOW); KETONES URINE TRACE (NEGATIVE); LEUKOCYTE ESTERASE URINE 3+ (NEGATIVE); NITRITE URINE POSITIVE (NEGATIVE); OCCULT BLOOD URINE TRACE (NEGATIVE); PROTEIN URINE 1+ (NEGATIVE); SPECIFIC GRAVITY URINE 1.018 (1.005-1.030); UROBILINOGEN URINE 0.2 E.U./dL (0.2-1.0)
[2021-04-16] MEDS ORDERED: CIPR500S3 PO ×2 (11:10)
[2021-04-16] MEDS ORDERED: CIPR-263 MT (11:12)
[2021-04-16 14:12] VITALS: BP 165/189
== END 2021-04-16 13:30 | disposition home or self-care (01) ==
LOC: ER 09:09
DX: Z43.6 Encounter for attention to other artificial openings of urinary tract (principal); N39.0 Urinary tract infection, site not specified; R33.9 Retention of urine, unspecified
CPT/HCPCS: 51702; 81003; 99284

== ENCOUNTER 2021-04-29 22:02 | Emergency (ER) | payer MEDICAID ==
[~2021-04-29] VITALS: Ht 185.4 cm; Wt 108.0 kg
[~2021-04-29 22:02] MED LIST changes: +CIPR-263 MT
[2021-04-30 02:30] VITALS: BP 165/99
== END 2021-04-30 02:35 | disposition home or self-care (01) ==
LOC: ER 22:02
DX: Z43.6 Encounter for attention to other artificial openings of urinary tract (principal)
CPT/HCPCS: 51702; 99284

== ENCOUNTER 2021-09-23 07:56 | Inpatient (IN) | payer MEDICAID ==
[~2021-09-23] VITALS: Ht 200.7 cm; Wt 120.7 kg
[2021-09-23] MEDS ORDERED: CEFTRIAXONE 1 G PREMIX 50 ML IV ONE (08:45)
[2021-09-23] MEDS ORDERED: DILTIAZEM HCL 5MG/ML 5ML VIAL IV ONE (08:45)
[2021-09-23 09:17] LABS: BASOPHILS % 0.3 % (0.0-2.0); HEMATOCRIT. 45.9 % (42.0-52.0); HEMOGLOBIN. 15.4 g/dL (14.0-18.0); LYMPHOCYTES % 18.2 % (20.0-50.0); MEAN CORPUSCULAR HEMOGLOBIN 31.2 pg (28.0-32.0); MEAN CORPUSCULAR VOLUME 92.7 fL (80.0-94.0); MEAN PLATELET VOLUME 8.2 fl (7.4-10.4); MONOCYTES % 9.6 % (2.0-8.0); NEUTROPHILS % 69.9 % (40.0-76.0); PLATELET 212 x1000/uL (130-400); RED BLOOD CELL COUNT 4.95 mill/uL (4.7-6.1); RED CELL DISTRIBUTION WIDTH 13.8 % (11.6-14.6)
[2021-09-23 09:25] LABS: CHLORIDE 106 mEq/L (98-107)
[2021-09-23] MEDS ORDERED: SODIUM CHLORIDE 0.9% 1,000 ML IV SCH (10:45)
[2021-09-23] MEDS ORDERED: SODIUM CHLORIDE 0.9% 1,000 ML IV ONE ×2 (11:15→14:15)
[2021-09-23 11:57] LABS: CLARITY URINE TURBID (CLEAR); COLOR URINE YELLOW (YELLOW); KETONES URINE NEGATIVE (NEGATIVE); LEUKOCYTE ESTERASE URINE 3+ (NEGATIVE); NITRITE URINE NEGATIVE (NEGATIVE); OCCULT BLOOD URINE 3+ (NEGATIVE); PROTEIN URINE 2+ (NEGATIVE); SPECIFIC GRAVITY URINE 1.014 (1.005-1.030); UROBILINOGEN URINE 0.2 E.U./dL (0.2-1.0)
[2021-09-23] MEDS ORDERED: DILTIAZEM HCL 5MG/ML 5ML VIAL IV NR (12:15)
[2021-09-23] MEDS ORDERED: CALCIUM CHLORIDE 1,000 MG in DEXT 5% WATER 90 ML IV ONE (12:15)
[2021-09-23] MEDS ORDERED: DILTIAZEM HCL 125 MG in DEXT 5% WATER 100 ML IV ONE ×2 (13:45→14:00)
[2021-09-23] MEDS ORDERED: ACETAMINOPHEN 650MG/20.3ML UDC PO PRN (17:45)
[2021-09-23] MEDS ORDERED: AMIODARONE HCL 150 MG in DEXT 5% WATER 100 ML IV NR (19:00)
[2021-09-23] MEDS: METOPROLOL TARTRATE 50MG TABLET PO SCH (19:29)
[2021-09-23] MEDS: AMIODARONE HCL 900 MG in DEXT 5% WATER 482 ML IV SCH (19:30)
[2021-09-23] MEDS ORDERED: AMIODARONE HCL 900 MG in DEXT 5% WATER 482 ML IV SCH (19:30)
[2021-09-23] MEDS: AMIODARONE HCL 200 MG TABLET PO SCH (21:00)
[2021-09-23] MEDS ORDERED: METOPROLOL TARTRATE 50MG TABLET PO SCH (21:00)
[2021-09-23] MEDS ORDERED: ENOXAPARIN 40MG/0.4ML SYR SUBCUT SCH (21:00)
[2021-09-24] VITALS (53 sets, daily range): BP systolic 65–182; BP diastolic 35–115
[2021-09-24] MEDS: DILTIAZEM 125MG/125ML PMX 125 ML IV SCH ×2 (00:03→15:11)
[2021-09-24 06:34] LABS: BASOPHILS % 0.3 % (0.0-2.0); EOSINOPHILS % 2.7 % (0.0-5.0); HEMATOCRIT. 41.9 % (42.0-52.0); HEMOGLOBIN. 13.9 g/dL (14.0-18.0); LYMPHOCYTES % 18.7 % (20.0-50.0); MEAN CORPUSCULAR HEMOGLOBIN 30.9 pg (28.0-32.0); MEAN CORPUSCULAR VOLUME 92.9 fL (80.0-94.0); MEAN PLATELET VOLUME 8.4 fl (7.4-10.4); MONOCYTES % 7.9 % (2.0-8.0); NEUTROPHILS % 70.4 % (40.0-76.0); PLATELET 187 x1000/uL (130-400); RED BLOOD CELL COUNT 4.51 mill/uL (4.7-6.1); RED CELL DISTRIBUTION WIDTH 13.9 % (11.6-14.6)
[2021-09-24 06:50] LABS: CHLORIDE 106 mEq/L (98-107)
[2021-09-24] MEDS ORDERED: CEFTRIAXONE 1 G PREMIX 50 ML IV SCH (09:00)
[2021-09-24] MEDS: METOPROLOL TARTRATE 50MG TABLET PO SCH (09:59)
[2021-09-24] MEDS: AMIODARONE HCL 200 MG TABLET PO SCH ×2 (09:59→20:30)
[2021-09-24] MEDS: ENOXAPARIN 30MG/0.3ML SYR SUBCUT SCH ×2 (10:34→20:30)
[2021-09-24] MEDS: CEFTRIAXONE 1,000 MG in DEXTROSE 5% WATER 50 ML IV SCH (10:34)
[2021-09-24] MEDS: AMIODARONE HCL 900 MG in DEXT 5% WATER 482 ML IV SCH (19:32)
[2021-09-24] MEDS: METOPROLOL TARTRATE 25MG TABLET PO SCH (20:30)
[2021-09-25] VITALS (55 sets, daily range): BP systolic 62–181; BP diastolic 23–158
[2021-09-25] MEDS: DILTIAZEM 125MG/125ML PMX 125 ML IV SCH (00:30)
[2021-09-25] MEDS: ENOXAPARIN 30MG/0.3ML SYR SUBCUT SCH ×2 (08:32→20:47)
[2021-09-25] MEDS: AMIODARONE HCL 200 MG TABLET PO SCH ×2 (08:32→20:47)
[2021-09-25] MEDS: METOPROLOL TARTRATE 25MG TABLET PO SCH ×2 (08:33→20:47)
[2021-09-25 09:47] LABS: BASOPHILS % 0.2 % (0.0-2.0); EOSINOPHILS % 2.4 % (0.0-5.0); HEMATOCRIT. 43.7 % (42.0-52.0); HEMOGLOBIN. 14.8 g/dL (14.0-18.0); LYMPHOCYTES % 15.8 % (20.0-50.0); MEAN CORPUSCULAR HEMOGLOBIN 30.9 pg (28.0-32.0); MEAN CORPUSCULAR VOLUME 91.2 fL (80.0-94.0); MEAN PLATELET VOLUME 8.6 fl (7.4-10.4); MONOCYTES % 6.4 % (2.0-8.0); NEUTROPHILS % 75.2 % (40.0-76.0); PLATELET 209 x1000/uL (130-400); RED BLOOD CELL COUNT 4.79 mill/uL (4.7-6.1); RED CELL DISTRIBUTION WIDTH 13.6 % (11.6-14.6)
[2021-09-25 10:03] LABS: CHLORIDE 105 mEq/L (98-107)
[2021-09-25] MEDS ORDERED: METOPROLOL TARTRATE 5MG/5ML VIAL IV PRN (10:45)
[2021-09-25] MEDS ORDERED: DIGOXIN 125MCG TABLET PO NR (11:30)
[2021-09-25] MEDS: CEFTRIAXONE 1,000 MG in DEXTROSE 5% WATER 50 ML IV SCH (13:34)
[2021-09-25] MEDS: DIGOXIN 125MCG TABLET PO SCH (17:52)
[2021-09-26] VITALS (40 sets, daily range): BP systolic 60–147; BP diastolic 38–103
[2021-09-26] MEDS: MEROPENEM 500 MG in SODIUM CHLORIDE 0.9% 50 ML IV SCH ×3 (05:33→18:10)
[2021-09-26] MEDS: AMIODARONE HCL 200 MG TABLET PO SCH ×2 (08:43→21:07)
[2021-09-26] MEDS: ENOXAPARIN 30MG/0.3ML SYR SUBCUT SCH ×2 (08:43→21:07)
[2021-09-26] MEDS: METOPROLOL TARTRATE 25MG TABLET PO SCH (08:43)
[2021-09-26] MEDS: DIGOXIN 125MCG TABLET PO SCH (18:24)
[2021-09-26] MEDS: LOSARTAN POTASSIUM 50 MG TABLET PO SCH (21:07)
[2021-09-27] VITALS (24 sets, daily range): BP systolic 102–207; BP diastolic 39–181
[2021-09-27] MEDS: MEROPENEM 500 MG in SODIUM CHLORIDE 0.9% 50 ML IV SCH ×2 (01:03→08:09)
[2021-09-27] MEDS: LOSARTAN POTASSIUM 50 MG TABLET PO SCH (08:09)
[2021-09-27] MEDS: ENOXAPARIN 30MG/0.3ML SYR SUBCUT SCH (08:09)
[2021-09-27] MEDS: AMIODARONE HCL 200 MG TABLET PO SCH (08:10)
[2021-09-27] MEDS ORDERED: METOPROLOL TARTRATE 50MG TABLET PO SCH (10:30)
[2021-09-27] MEDS ORDERED: LOSARTAN POTASSIUM 25 MG TABLET PO SCH (21:00)
== END 2021-09-27 16:30 | disposition home or self-care (01) | DRG 720 ==
LOC: ER 07:56 → EDBEDREQTM 12:31 → EDBEDREQ 12:31 → EDBEDREQSVC 12:32 → CVICU 13:39 → EDBEDREQ 13:43 → EDBEDREQTM 13:43 → EDBEDREQSVC 13:43 → ENRESERV 23:01
PROVIDERS: ADMIT Internal Medicine; ATTEND Internal Medicine
DX: A41.9 Sepsis, unspecified organism (principal); I50.23 Acute on chronic systolic (congestive) heart failure; I42.8 Other cardiomyopathies; I47.1 Supraventricular tachycardia; I11.0 Hypertensive heart disease with heart failure; E66.01 Morbid (severe) obesity due to excess calories; N39.0 Urinary tract infection, site not specified; N32.0 Bladder-neck obstruction; I48.92 Unspecified atrial flutter; J45.909 Unspecified asthma, uncomplicated; R31.0 Gross hematuria; I48.20 Chronic atrial fibrillation, unspecified; R33.9 Retention of urine, unspecified; F12.90 Cannabis use, unspecified, uncomplicated; Z79.82 Long term (current) use of aspirin; Z79.899 Other long term (current) drug therapy; Z68.30 Body mass index [BMI] 30.0-30.9, adult; Z79.01 Long term (current) use of anticoagulants
CPT/HCPCS: 36415; 71045; 80048; 80053; 81003; 82962; 83605; 83880; 84484; 85025; 87077; 87186; 93005; 99291; J0282; J0696; J1650; J2185; J3490; J7030; J7060; A4315

== ENCOUNTER 2021-12-15 08:14 | Emergency (ER) | payer MEDICAID ==
[~2021-12-15] VITALS: Ht 172.7 cm; Wt 100.0 kg
[2021-12-15 09:37] VITALS: BP 164/105
[2021-12-15 10:38] LABS: CLARITY URINE CLOUDY (CLEAR); COLOR URINE YELLOW (YELLOW); KETONES URINE TRACE (NEGATIVE); LEUKOCYTE ESTERASE URINE 3+ (NEGATIVE); NITRITE URINE NEGATIVE (NEGATIVE); OCCULT BLOOD URINE 1+ (NEGATIVE); PROTEIN URINE 3+ (NEGATIVE); SPECIFIC GRAVITY URINE 1.024 (1.005-1.030)
[2021-12-15] MEDS ORDERED: LEVO750T46 PO (10:43)
== END 2021-12-15 12:45 | disposition home or self-care (01) ==
LOC: ER 08:14
DX: N40.1 Benign prostatic hyperplasia with lower urinary tract symptoms (principal); N39.0 Urinary tract infection, site not specified; Z43.6 Encounter for attention to other artificial openings of urinary tract; B95.2 Enterococcus as the cause of diseases classified elsewhere; B96.5 Pseudomonas (aeruginosa) (mallei) (pseudomallei) as the cause of diseases classified elsewhere; B96.1 Klebsiella pneumoniae [K. pneumoniae] as the cause of diseases classified elsewhere; B96.89 Other specified bacterial agents as the cause of diseases classified elsewhere; Z79.899 Other long term (current) drug therapy
CPT/HCPCS: 81003; 87077; 87186; 99283

== ENCOUNTER 2022-04-02 08:17 | Emergency (ER) | payer MEDICAID ==
[~2022-04-02] VITALS: Ht 182.9 cm; Wt 142.0 kg
[~2022-04-02 08:17] MED LIST changes: +LEVO750T68 PO
[2022-04-02 08:38] VITALS: BP 152/107
== END 2022-04-02 11:09 | disposition home or self-care (01) ==
LOC: ER 08:17
DX: T83.031A Leakage of indwelling urethral catheter, initial encounter (principal); N40.1 Benign prostatic hyperplasia with lower urinary tract symptoms; I10 Essential (primary) hypertension; Y73.8 Miscellaneous gastroenterology and urology devices associated with adverse incidents, not elsewhere classified; Y92.012 Bathroom of single-family (private) house as the place of occurrence of the external cause
CPT/HCPCS: 51702; 99284

== ENCOUNTER 2022-05-10 07:27 | Emergency (ER) | payer MEDICAID ==
[~2022-05-10] VITALS: Ht 177.8 cm; Wt 141.0 kg
[2022-05-10 07:35] VITALS: BP 165/100
[2022-05-10 09:13] LABS: CLARITY URINE CLEAR (CLEAR); COLOR URINE YELLOW (YELLOW); KETONES URINE NEGATIVE (NEGATIVE); LEUKOCYTE ESTERASE URINE 2+ (NEGATIVE); NITRITE URINE POSITIVE (NEGATIVE); OCCULT BLOOD URINE 2+ (NEGATIVE); PH URINE 5.5 (4.5-8.0); PROTEIN URINE 2+ (NEGATIVE); SPECIFIC GRAVITY URINE 1.019 (1.005-1.030); UROBILINOGEN URINE 0.2 E.U./dL (0.2-1.0)
[2022-05-10] MEDS ORDERED: CIPR-263 MT (09:42)
== END 2022-05-10 09:59 | disposition home or self-care (01) ==
LOC: ER 07:27
DX: N39.0 Urinary tract infection, site not specified (principal); E78.00 Pure hypercholesterolemia, unspecified; I10 Essential (primary) hypertension; F12.10 Cannabis abuse, uncomplicated; Z79.899 Other long term (current) drug therapy
CPT/HCPCS: 81003; 99283; A4315

== ENCOUNTER 2022-09-01 08:28 | Emergency (ER) | payer MEDICAID ==
[~2022-09-01] VITALS: Ht 188 cm; Wt 100.0 kg
[2022-09-01] MEDS ORDERED: ACETAMINOPHEN 325MG TABLET PO ONE (10:30)
[2022-09-01] MEDS ORDERED: KETOROLAC 60MG/2ML VIAL IM ONE (11:30)
[2022-09-01 11:52] VITALS: BP 143/109
[2022-09-01 12:00] LABS: CLARITY URINE TURBID (CLEAR); COLOR URINE YELLOW (YELLOW); KETONES URINE TRACE (NEGATIVE); LEUKOCYTE ESTERASE URINE 3+ (NEGATIVE); NITRITE URINE NEGATIVE (NEGATIVE); OCCULT BLOOD URINE 3+ (NEGATIVE); PROTEIN URINE 2+ (NEGATIVE); SPECIFIC GRAVITY URINE 1.016 (1.005-1.030)
[2022-09-01] MEDS ORDERED: TOPUD PO (12:53)
[2022-09-01] MEDS ORDERED: CEFD300C3 MT (12:53)
== END 2022-09-01 13:06 | disposition home or self-care (01) ==
LOC: ER 08:28
DX: N12 Tubulo-interstitial nephritis, not specified as acute or chronic (principal); F12.10 Cannabis abuse, uncomplicated; I10 Essential (primary) hypertension; E78.00 Pure hypercholesterolemia, unspecified
CPT/HCPCS: 51702; 81003; 82962; 87186; 99284; A4315